=== PATIENT | female | born 1990 | race American Indian/Alaskan Native ===

== ENCOUNTER 2017-03-09 15:33 | Emergency (ER) | payer MEDICAID ==
[2017-03-09 15:47] VITALS: BP 140/83
--- NOTE | 2017-03-09 17:35 | Emergency Department Report ---
ED ENT HPI - General Chief complaint: Upper Respiratory Infection Stated complaint: CHEST/BACK ACHES/COUGH/EMESIS Time Seen by Provider: 03/09/17 16:39 Source: patient Mode of arrival: Ambulatory Limitations: No Limitations - History of Present Illness Initial comments: PT c/o c/c/c x 3 days. PT states her daughter has been sick with similar. PT denies relief with OTC Gagandeep STINSON complaint: sore throat Onset/Timin -: Gradual, days(s) Quality: aching (back ) Improves with: none Worsens with: none Associated Symptoms: fever (subjective, feels achey and tired ), cough, sore throat, rhinorrhea. denies: discharge from ear - Related Data Previous Rx's Medication Instructions Recorded Last Taken Type Benzonatate [Tessalon Perles] 100 mg PO Q8HR PRN #12 capsule 03/09/17 Unknown Rx Cetirizine HCl [ZyrTEC] 10 mg PO HS PRN #7 capsule 03/09/17 Unknown Rx Fluticasone [Flonase] 2 spray NS QDAY #1 bottle 03/09/17 Unknown Rx Ibuprofen [Motrin] 600 mg PO Q8H PRN #15 tablet 03/09/17 Unknown Rx guaiFENesin/DEXTROMETHORPHAN 1 each PO BID PRN #10 tbmp.12hr 03/09/17 Unknown Rx [Mucinex Dm ER 1,200-60 mg Tab] Allergies Allergy/AdvReac Type Severity Reaction Status Date / Time No Known Allergies Allergy Verified 08/22/13 22:18 ED Dental HPI - General Chief complaint: Upper Respiratory Infection Stated complaint: CHEST/BACK ACHES/COUGH/EMESIS Time Seen by Provider: 03/09/17 16:39 Source: patient Mode of arrival: Ambulatory Limitations: No Limitations - Related Data Previous Rx's Medication Instructions Recorded Last Taken Type Benzonatate [Tessalon Perles] 100 mg PO Q8HR PRN #12 capsule 03/09/17 Unknown Rx Cetirizine HCl [ZyrTEC] 10 mg PO HS PRN #7 capsule 03/09/17 Unknown Rx Fluticasone [Flonase] 2 spray NS QDAY #1 bottle 03/09/17 Unknown Rx Ibuprofen [Motrin] 600 mg PO Q8H PRN #15 tablet 03/09/17 Unknown Rx guaiFENesin/DEXTROMETHORPHAN 1 each PO BID PRN #10 tbmp.12hr 03/09/17 Unknown Rx [Mucinex Dm ER 1,200-60 mg Tab] Allergies Allergy/AdvReac Type Severity Reaction Status Date / Time No Known Allergies Allergy Verified 08/22/13 22:18 ED Review of Systems ROS: Stated complaint: CHEST/BACK ACHES/COUGH/EMESIS Other details as noted in HPI Comment: All other systems reviewed and negative Constitutional: fever (subjective ), malaise. denies: chills ENT: throat pain, congestion. denies: ear pain Respiratory: cough Gastrointestinal: denies: nausea, vomiting Genitourinary: denies: abnormal menses Musculoskeletal: back pain (ache) Neurological: denies: headache ED Past Medical Hx - Past Medical History Previous Medical History?: No Hx Hypertension: No Hx Congestive Heart Failure: No Hx Diabetes: No Hx Deep Vein Thrombosis: No Hx Renal Disease: No Hx Sickle Cell Disease: No Hx Seizures: No Hx Asthma: No Hx COPD: No Hx HIV: No - Surgical History Past Surgical History?: Yes Additional Surgical History: - Social History Smoking Status: Never Smoker Substance Use Type: None - Medications Home Medications: Home Medications Medication Instructions Recorded Confirmed Last Taken Type Benzonatate [Tessalon Perles] 100 mg PO Q8HR PRN #12 capsule 03/09/17 Unknown Rx Cetirizine HCl [ZyrTEC] 10 mg PO HS PRN #7 capsule 03/09/17 Unknown Rx Fluticasone [Flonase] 2 spray NS QDAY #1 bottle 03/09/17 Unknown Rx Ibuprofen [Motrin] 600 mg PO Q8H PRN #15 tablet 03/09/17 Unknown Rx guaiFENesin/DEXTROMETHORPHAN 1 each PO BID PRN #10 tbmp.12hr 03/09/17 Unknown Rx [Mucinex Dm ER 1,200-60 mg Tab] ED Physical Exam - General Limitations: No Limitations General appearance: alert, in no apparent distress - Head Head exam: Present: atraumatic, normocephalic, normal inspection, other (no sinus tenderness ) - Eye Eye exam: Present: normal appearance, EOMI. Absent: conjunctival injection - ENT ENT exam: Present: normal orophraynx, mucous membranes moist, TM's normal bilaterally, other (+ nasal drainage ) - Neck Neck exam: Present: normal inspection, tenderness, full ROM, lymphadenopathy - Respiratory Respiratory exam: Present: normal lung sounds bilaterally. Absent: respiratory distress, wheezes, rales, rhonchi - Cardiovascular Cardiovascular Exam: Present: regular rate, normal rhythm - Extremities Exam Extremities exam: Present: normal inspection, full ROM - Back Exam Back exam: Present: normal inspection, full ROM. Absent: tenderness, CVA tenderness (R), CVA tenderness (L), muscle spasm, paraspinal tenderness, vertebral tenderness - Neurological Exam Neurological exam: Present: alert, oriented X3, normal gait - Psychiatric Psychiatric exam: Present: normal affect, normal mood - Skin Skin exam: Present: warm, dry, intact ED Course Vital Signs 03/09/17 15:45 Temperature 97.7 F Pulse Rate 79 Respiratory 16 Rate Blood Pressure 140/83 O2 Sat by Pulse 99 Oximetry - Reevaluation(s) Reevaluation #1: 03/09/17 17:33 PT aware of dx and plan of care. PT aware she will need to follow up with PCP for bp recheck - Pulse Oximetry Interpretation Digit-Finger Initial Pulse Oximetry Readin Actions Taken: none ED Medical Decision Making - Differential Diagnosis viral uri, sinusitis, pharyngits Critical Care Time: No Critical care attestation.: If time is entered above; I have spent that time in minutes in the direct care of this critically ill patient, excluding procedure time. ED Disposition Clinical Impression: Viral URI with cough, Elevated blood pressure reading Disposition: DISCHARGED TO HOME OR SELFCARE Is pt being admited?: No Does the pt Need Aspirin: No Condition: Stable Instructions: Upper Respiratory Infection (ED), Viral Syndrome (ED) Additional Instructions: REST Drink plenty of fluids recheck your bp at follow up Prescriptions: Benzonatate [Tessalon Perles] 100 mg PO Q8HR PRN #12 capsule PRN Reason: Cough Cetirizine HCl [ZyrTEC] 10 mg PO HS PRN #7 capsule PRN Reason: Congestion Fluticasone [Flonase] 2 spray NS QDAY #1 bottle guaiFENesin/DEXTROMETHORPHAN [Mucinex Dm ER 1,200-60 mg Tab] 1 each PO BID PRN # 10 tbmp.12hr PRN Reason: Cough Ibuprofen [Motrin] 600 mg PO Q8H PRN #15 tablet PRN Reason: Pain Referrals: CRYSTAL POOLE JR, MD [Staff Physician] - 3-5 Days [facility] [Outside] - 3-5 Days [facility] [Outside] - 3-5 Days Forms: Work/School Release Form(ED) Time of Disposition: 17:35
== END 2017-03-09 17:55 | disposition home or self-care (01) ==
LOC: ED 15:33
DX: J06.9 Acute upper respiratory infection, unspecified (principal); R03.0 Elevated blood-pressure reading, without diagnosis of hypertension
CPT/HCPCS: 99282

== ENCOUNTER 2017-12-14 10:27 | Emergency (ER) | payer SELFPAY ==
[2017-12-14 10:38] VITALS: BP 122/82
[2017-12-14 11:11] LABS: Basophils % (Auto) 0.5 % (0.0-1.8); Eosinophils # (Auto) 0.2 K/mm3 (0.0-0.4); Eosinophils % (Auto) 2.9 % (0.0-4.3); Hematocrit 38.3 % (30.3-42.9); Hemoglobin 12.9 gm/dl (10.1-14.3); Lymphocytes # (Auto) 2.4 K/mm3 (1.2-5.4); Lymphocytes % (Auto) 35.6 % (13.4-35.0); Mean Corpuscular HGB Conc 34 % (30-34); Mean Corpuscular Hemoglobin 30 pg (28-32); Mean Corpuscular Volume 88 fl (79-97); Monocytes # (Auto) 0.5 K/mm3 (0.0-0.8); Platelet Count 304 K/mm3 (140-440); Red Blood Count 4.34 M/mm3 (3.65-5.03); Red Cell Distribution Width 14.1 % (13.2-15.2)
[2017-12-14 11:26] LABS: BUN/Creatinine Ratio 15; Blood Urea Nitrogen 9 mg/dL (7-17); Calcium 9.4 mg/dL (8.4-10.2); Hemolysis Index 10
[2017-12-14] MEDS ORDERED: TORADOL IM ONE (12:23)
[2017-12-14] MEDS ORDERED: GUAIFENESIN DM SYRUP PO ONE (12:23)
--- NOTE | 2017-12-14 12:54 | Emergency Department Report ---
- General Chief Complaint: Chest Pain Stated Complaint: FLU LIKE SYMPTOMS/SOB/CHEST PAIN Time Seen by Provider: 12/14/17 12:11 Source: patient Mode of arrival: Ambulatory Limitations: No Limitations - History of Present Illness Initial Comments: This is a 27-year-old female nontoxic, well nourished in appearance, no acute signs of distress presents to the ED with c/o of productive cough,body aches, rhinorrhea, nasal congestion x3 days. Patient stated that she has chest pain and shortness of breathe during fever episode. Otherwise, patient denies any chest pain or shortness of breathe while just laying down, rest, and not coughing. Patient describes productive cough as yellow mucus production. Patient denies any sick contact. Patient denies any recent travels, long car, recent hospital stays. Patient denies any calf pain or calf tenderness. Patient denies any chest pain, short of breath, fever, chills, nausea, vomiting , hemoptysis, numbness, tingling, headache or stiff neck. Patient denies any drug allergies or significant PMH. MD Complaint: cough, rhinorrhea, nasal congestion -: days(s) (3) Severity: mild Severity scale (0 -10): 8 Quality: aching Consistency: constant Improves With: nothing Worsens With: nothing Associated Symptoms: rhinorrhea, nasal congestion, cough, chest pain, shortness of breath, other (body aches). denies: fever, chills, myalgias, diaphoresis (3) , headache, sore throat, stiff neck, abdominal pain, nausea, vomiting, diarrhea , dysuria, rash, confusion, right sweats, weight loss, epistaxis, hoarseness, ear pain Treatments Prior to Arrival: none - Related Data Previous Rx's Medication Instructions Recorded Last Taken Type Benzonatate [Tessalon Perles] 100 mg PO Q8HR PRN #12 capsule 03/09/17 Unknown Rx Cetirizine HCl [ZyrTEC] 10 mg PO HS PRN #7 capsule 03/09/17 Unknown Rx Fluticasone [Flonase] 2 spray NS QDAY #1 bottle 03/09/17 Unknown Rx Ibuprofen [Motrin] 600 mg PO Q8H PRN #15 tablet 03/09/17 Unknown Rx guaiFENesin/DEXTROMETHORPHAN 1 each PO BID PRN #10 tbmp.12hr 03/09/17 Unknown Rx [Mucinex Dm ER 1,200-60 mg Tab] Azithromycin [Zithromax Z-MARGARET] 250 mg PO DAILY #6 tablet 12/14/17 Unknown Rx Benzonatate [Tessalon Perle] 100 mg PO Q6H PRN #20 capsule 12/14/17 Unknown Rx Ibuprofen [Motrin] 600 mg PO Q8H PRN #30 tablet 12/14/17 Unknown Rx Oseltamivir [Tamiflu] 75 mg PO BID #14 cap 12/14/17 Unknown Rx Allergies Allergy/AdvReac Type Severity Reaction Status Date / Time No Known Allergies Allergy Verified 08/22/13 22:18 ED Review of Systems ROS: Stated complaint: FLU LIKE SYMPTOMS/SOB/CHEST PAIN Other details as noted in HPI Constitutional: denies: chills, fever Eyes: denies: eye pain, eye discharge, vision change ENT: denies: ear pain, throat pain Respiratory: cough, shortness of breath. denies: wheezing Cardiovascular: chest pain. denies: palpitations Endocrine: no symptoms reported Gastrointestinal: denies: abdominal pain, nausea, diarrhea Genitourinary: denies: urgency, dysuria, discharge Musculoskeletal: denies: back pain, joint swelling, arthralgia Skin: denies: rash, lesions Neurological: denies: headache, weakness, paresthesias Psychiatric: denies: anxiety, depression Hematological/Lymphatic: denies: easy bleeding, easy bruising ED Past Medical Hx - Past Medical History Hx Hypertension: No Hx Congestive Heart Failure: No Hx Diabetes: No Hx Deep Vein Thrombosis: No Hx Renal Disease: No Hx Sickle Cell Disease: No Hx Seizures: No Hx Asthma: No Hx COPD: No Hx HIV: No - Surgical History Additional Surgical History: - Social History Smoking Status: Never Smoker - Medications Home Medications: Home Medications Medication Instructions Recorded Confirmed Last Taken Type Benzonatate [Tessalon Perles] 100 mg PO Q8HR PRN #12 capsule 03/09/17 Unknown Rx Cetirizine HCl [ZyrTEC] 10 mg PO HS PRN #7 capsule 03/09/17 Unknown Rx Fluticasone [Flonase] 2 spray NS QDAY #1 bottle 03/09/17 Unknown Rx Ibuprofen [Motrin] 600 mg PO Q8H PRN #15 tablet 03/09/17 Unknown Rx guaiFENesin/DEXTROMETHORPHAN 1 each PO BID PRN #10 tbmp.12hr 03/09/17 Unknown Rx [Mucinex Dm ER 1,200-60 mg Tab] Azithromycin [Zithromax Z-MARGARET] 250 mg PO DAILY #6 tablet 12/14/17 Unknown Rx Benzonatate [Tessalon Perle] 100 mg PO Q6H PRN #20 capsule 12/14/17 Unknown Rx Ibuprofen [Motrin] 600 mg PO Q8H PRN #30 tablet 12/14/17 Unknown Rx Oseltamivir [Tamiflu] 75 mg PO BID #14 cap 12/14/17 Unknown Rx ED Physical Exam - General Limitations: No Limitations General appearance: alert, in no apparent distress - Head Head exam: Present: atraumatic, normocephalic - Eye Eye exam: Present: normal appearance, PERRL, EOMI Pupils: Present: normal accommodation - ENT ENT exam: Present: normal exam, normal orophraynx, mucous membranes moist, TM's normal bilaterally, normal external ear exam - Neck Neck exam: Present: normal inspection, full ROM. Absent: tenderness, meningismus, lymphadenopathy, thyromegaly - Respiratory Respiratory exam: Present: normal lung sounds bilaterally. Absent: respiratory distress, wheezes, rales, rhonchi, stridor, chest wall tenderness, accessory muscle use, decreased breath sounds, prolonged expiratory - Cardiovascular Cardiovascular Exam: Present: regular rate, normal rhythm, normal heart sounds. Absent: bradycardia, tachycardia, irregular rhythm, systolic murmur, diastolic murmur, rubs, gallop - GI/Abdominal GI/Abdominal exam: Present: soft, normal bowel sounds. Absent: distended, tenderness, guarding, rebound, rigid, diminished bowel sounds - Rectal Rectal exam: Present: deferred - Extremities Exam Extremities exam: Present: normal inspection, full ROM, normal capillary refill. Absent: tenderness, pedal edema, joint swelling, calf tenderness - Back Exam Back exam: Present: normal inspection, full ROM. Absent: tenderness, CVA tenderness (R), CVA tenderness (L), muscle spasm, paraspinal tenderness, vertebral tenderness, rash noted - Neurological Exam Neurological exam: Present: alert, oriented X3, CN II-XII intact, normal gait, reflexes normal - Psychiatric Psychiatric exam: Present: normal affect, normal mood - Skin Skin exam: Present: warm, dry, intact, normal color. Absent: rash ED Course Vital Signs 12/14/17 12/14/17 10:34 12:35 Temperature 98.2 F Pulse Rate 87 Respiratory 16 18 Rate Blood Pressure 122/82 O2 Sat by Pulse 98 Oximetry - Reevaluation(s) Reevaluation #1: 12/14/17 12:55 Patient is speaking in full sentences with no signs of distress noted. - Consultations Consultation #1: 12/14/17 12:56 Patient has been consulted with Dr. Burns about patient history, physical exam, and labs and examined and screened patient and agrees to ED plan of care and discharge plan of care. ED Medical Decision Making - Lab Data Result diagrams: 12/14/17 10:49 12/14/17 10:49 - Medical Decision Making This is a 27-year-old female that presents with upper respiratory infection and influenza. Patient is stable and was examined by me and Dr. Burns. Chest x -ray has been obtained and dictated by radiologist with normal exam. Patient is notified of x-ray results with no questions noted. EKG normal sinus rhytm with no ST abnormalities. Labs within normal limits. BRISEIDA and Heart score 0 points. Wells criteria 0 points. Due to patient having symptoms of upper respiratory infection and symptoms of influenza and worsening I will treat patient empirically Tamiflu with zpak. Patient is within the >72 hour window for tamiflu. Patient was instructed to increase hydration, rest and take Motrin for fever episodes. Vitals stable. Patient is nonfebrile and normal heart rate. Patient was orally hydrated and patient tolerated well known nausea or vomiting. Patient was instructed Follow-up with a primary care doctor in 3- 5 days or if symptoms worsen and continue return to emergency room as soon as possible. At time time of discharge, the patient does not seem toxic or ill in appearance. No acute signs of distress noted. Patient agrees to discharge treatment plan of care. No further questions noted by the patient. Critical care attestation.: If time is entered above; I have spent that time in minutes in the direct care of this critically ill patient, excluding procedure time. ED Disposition Clinical Impression: Influenza Upper respiratory infection Qualifiers: URI type: unspecified URI Qualified Code(s): J06.9 - Acute upper respiratory infection, unspecified Disposition: DC-01 TO HOME OR SELFCARE Is pt being admited?: No Does the pt Need Aspirin: No Condition: Stable Instructions: Benzonatate (By mouth), Ibuprofen (By mouth), Azithromycin (By mouth), Oseltamivir (By mouth), Fever in Adults (ED), Influenza (ED), Upper Respiratory Infection (ED) Additional Instructions: Follow-up with a primary care doctor in 3-5 days or if symptoms worsen and continue return to emergency room as soon as possible. Increase rest, hydration and take Tylenol for fever episodes. Prescriptions: Azithromycin [Zithromax Z-MARGARET] 250 mg PO DAILY #6 tablet Benzonatate [Tessalon Perle] 100 mg PO Q6H PRN #20 capsule PRN Reason: Cough Ibuprofen [Motrin] 600 mg PO Q8H PRN #30 tablet PRN Reason: Pain/fever Oseltamivir [Tamiflu] 75 mg PO BID #14 cap Referrals: PRIMARY CARE, [Primary Care Provider] - 3-5 Days YUAN GONZALEZ MD [Staff Physician] - 3-5 Days [facility] [Outside] - 3-5 Days [facility] [Outside] - 3-5 Days Forms: Work/School Release Form(ED)
--- NOTE | 2017-12-14 12:57 | XRay Report ---
CHEST TWO VIEWS: 12/14/17 12:21 CLINICAL: Dyspnea COMPARISON: None FINDINGS: Normal heart and pulmonary vasculature. The lungs are normally expanded and clear. The bones and soft tissues are normal. IMPRESSION: Normal chest.
--- NOTE | 2017-12-14 13:02 | Emergency Department Report ---
Chief Complaint: Chest Pain Stated Complaint: FLU LIKE SYMPTOMS/SOB/CHEST PAIN Time Seen by Provider: 12/14/17 12:11 - HPI History of Present Illness: The patient is a 27-year-old female who presents for evaluation of cough and pain. She reports a nonproductive cough and chest pain for the past 3 days, elicited with coughing, relieved at rest, and some mild intermittent shortness of breath with exertion. She denies shortness of breath currently - Exam Vital Signs: Vital Signs 12/14/17 12/14/17 10:34 12:35 Temperature 98.2 F Pulse Rate 87 Respiratory 16 18 Rate Blood Pressure 122/82 O2 Sat by Pulse 98 Oximetry MSE screening note: Focused history and physical exam performed. Due to findings the following was ordered: Imaging and medicine for the patient's symptoms is ordered. ED Medical Decision Making - Lab Data Result diagrams: 12/14/17 10:49 12/14/17 10:49 ED Disposition for MSE Clinical Impression: Upper respiratory infection Condition: Stable Referrals: PRIMARY CARE [Primary Care Provider] - 3-5 Days
== END 2017-12-14 13:13 | disposition home or self-care (01) ==
LOC: ED 10:27
DX: J11.1 Influenza due to unidentified influenza virus with other respiratory manifestations (principal); J06.9 Acute upper respiratory infection, unspecified
CPT/HCPCS: 36415; 71046; 80048; 84484; 85025; 93005; 93010; 96372; 99284; J1885

== ENCOUNTER 2018-08-24 08:14 | Emergency (ER) | payer SELFPAY ==
[2018-08-24 08:20] VITALS: BP 115/75
--- NOTE | 2018-08-24 09:40 | Emergency Department Report ---
ED Lower Extremity HPI - General Chief Complaint: Extremity Injury, Lower Stated Complaint: RIGHT ANKLE PAIN Time Seen by Provider: 08/24/18 09:39 Source: patient Mode of arrival: Ambulatory Limitations: No Limitations - History of Present Illness -: Sudden Injury: Knee: Right Type of Injury: inversion Place: home Severity: mild Improves With: nothing Worsens With: nothing Context: walking - Related Data Previous Rx's Medication Instructions Recorded Last Taken Type Benzonatate [Tessalon Perles] 100 mg PO Q8HR PRN #12 capsule 03/09/17 Unknown Rx Cetirizine HCl [ZyrTEC] 10 mg PO HS PRN #7 capsule 03/09/17 Unknown Rx Fluticasone [Flonase] 2 spray NS QDAY #1 bottle 03/09/17 Unknown Rx Ibuprofen [Motrin] 600 mg PO Q8H PRN #15 tablet 03/09/17 Unknown Rx guaiFENesin/DEXTROMETHORPHAN 1 each PO BID PRN #10 tbmp.12hr 03/09/17 Unknown Rx [Mucinex Dm ER 1,200-60 mg Tab] Azithromycin [Zithromax Z-MARGARET] 250 mg PO DAILY #6 tablet 12/14/17 Unknown Rx Benzonatate [Tessalon Perle] 100 mg PO Q6H PRN #20 capsule 12/14/17 Unknown Rx Ibuprofen [Motrin] 600 mg PO Q8H PRN #30 tablet 12/14/17 Unknown Rx Oseltamivir [Tamiflu] 75 mg PO BID #14 cap 12/14/17 Unknown Rx Allergies Allergy/AdvReac Type Severity Reaction Status Date / Time No Known Allergies Allergy Verified 08/24/18 08:18 ED Review of Systems ROS: Stated complaint: RIGHT ANKLE PAIN Other details as noted in HPI Comment: All other systems reviewed and negative Constitutional: denies: chills Eyes: denies: eye pain ENT: denies: throat pain Respiratory: denies: orthopnea Cardiovascular: denies: chest pain Endocrine: denies: excessive sweating Gastrointestinal: denies: nausea Genitourinary: denies: urgency Musculoskeletal: other (R ANKLE PAIN) Skin: denies: lesions Neurological: denies: weakness Psychiatric: denies: depression Hematological/Lymphatic: denies: easy bleeding ED Past Medical Hx - Past Medical History Previous Medical History?: No Hx Hypertension: No Hx Congestive Heart Failure: No Hx Diabetes: No Hx Deep Vein Thrombosis: No Hx Renal Disease: No Hx Sickle Cell Disease: No Hx Seizures: No Hx Asthma: No Hx COPD: No Hx HIV: No - Surgical History Past Surgical History?: Yes Additional Surgical History: - Family History Family history: no significant - Social History Smoking Status: Never Smoker Substance Use Type: None - Medications Home Medications: Home Medications Medication Instructions Recorded Confirmed Last Taken Type Benzonatate [Tessalon Perles] 100 mg PO Q8HR PRN #12 capsule 03/09/17 Unknown Rx Cetirizine HCl [ZyrTEC] 10 mg PO HS PRN #7 capsule 03/09/17 Unknown Rx Fluticasone [Flonase] 2 spray NS QDAY #1 bottle 03/09/17 Unknown Rx Ibuprofen [Motrin] 600 mg PO Q8H PRN #15 tablet 03/09/17 Unknown Rx guaiFENesin/DEXTROMETHORPHAN 1 each PO BID PRN #10 tbmp.12hr 03/09/17 Unknown Rx [Mucinex Dm ER 1,200-60 mg Tab] Azithromycin [Zithromax Z-MARGARET] 250 mg PO DAILY #6 tablet 12/14/17 Unknown Rx Benzonatate [Tessalon Perle] 100 mg PO Q6H PRN #20 capsule 12/14/17 Unknown Rx Ibuprofen [Motrin] 600 mg PO Q8H PRN #30 tablet 12/14/17 Unknown Rx Oseltamivir [Tamiflu] 75 mg PO BID #14 cap 12/14/17 Unknown Rx ED Physical Exam - General Limitations: No Limitations General appearance: alert - Head Head exam: Present: atraumatic - Eye Eye exam: Present: normal appearance, PERRL Pupils: Present: normal accommodation - ENT ENT exam: Present: normal exam, mucous membranes moist - Neck Neck exam: Present: normal inspection - Respiratory Respiratory exam: Present: normal lung sounds bilaterally - Cardiovascular Cardiovascular Exam: Present: regular rate - GI/Abdominal GI/Abdominal exam: Present: soft - Rectal Rectal exam: Present: deferred - Extremities Exam Extremities exam: Present: normal inspection, full ROM, tenderness, normal capillary refill, joint swelling - Expanded Lower Extremity Exam Right Lower Leg exam: Present: normal inspection Ankle exam: Present: full ROM, swelling (MILD LAT). Absent: tenderness, abrasion, laceration, ecchymosis, deformity, crepidus, dislocation, erythema, anterior draw sign Foot/Toe exam: Present: normal inspection Neuro vascular tendon exam: Present: no vascular compromise Gait: Positive: observed and normal - Back Exam Back exam: Present: normal inspection - Neurological Exam Neurological exam: Present: alert, oriented X3, CN II-XII intact - Psychiatric Psychiatric exam: Present: normal affect, normal mood - Skin Skin exam: Present: warm, dry, intact, normal color. Absent: rash ED Course Vital Signs 08/24/18 08/24/18 08:18 10:49 Temperature 98 F 98 F Pulse Rate 62 62 Respiratory 18 18 Rate Blood Pressure 115/75 Blood Pressure 115/75 [Right] O2 Sat by Pulse 98 98 Oximetry ED Lower Extremity MDM - Radiology Data Radiology results: report reviewed, image reviewed - Medical Decision Making XRAY NEG - Differential Diagnosis RO FX Critical care attestation.: If time is entered above; I have spent that time in minutes in the direct care of this critically ill patient, excluding procedure time. ED Disposition Clinical Impression: Ankle sprain Disposition: TO HOME OR SELFCARE Is pt being admited?: No Does the pt Need Aspirin: No Condition: Stable Instructions: Ankle Sprain (ED) Additional Instructions: ice rest elevate vandana motrin for pain crutches for 3 days if persists at that point go to ortho MD referral below Referrals: SHIRA ECKERT MD [Staff Physician] - 3-5 Days Forms: Work/School Release Form(ED) Time of Disposition: 10:21
--- NOTE | 2018-08-24 10:00 | XRay Report ---
RIGHT ANKLE, 2 views: History: right ankle pain. Bone mineralization is normal. No acute osseous abnormality or joint pathology is identified. The soft tissues are unremarkable. IMPRESSION: Normal study.
== END 2018-08-24 10:53 | disposition home or self-care (01) ==
LOC: ED 08:14
DX: S93.401A Sprain of unspecified ligament of right ankle, initial encounter (principal); X50.1XXA Overexertion from prolonged static or awkward postures, initial encounter; Y93.89 Activity, other specified; Y92.009 Unspecified place in unspecified non-institutional (private) residence as the place of occurrence of the external cause; Y99.8 Other external cause status